=== PATIENT | male | born 1940 ===

== ENCOUNTER 2016-08-30 05:42 | Day surgery (SDC) | payer MEDICARE, OTHER ==
--- NOTE | 2016-08-29 17:05 | Pre-Procedure Note/Attestation ---
Pre-Procedure Note/Attestation Complete Prior to Procedure Planned Procedure: left Procedure Narrative: 1- cataract extraction with phaco and PC IOL implantation, left eye. 2- insertion of Malyugin ring, left eye. Indications for Procedure Pre-Operative Diagnosis: 1- cataract left eye 2- floppy iris syndrome, left eye. Attestation I attest that I discussed the nature of the procedure; its benefits; risks and complications; and alternatives (and the risks and benefits of such alternatives ), prior to the procedure, with the patient (or the patient's legal manufacturer's representative). I attest that, if there was a reasonable possibility of needing a blood transfusion, the patient (or the patient's legal manufacturer's representative) was given the [place] [facility] standardized written summary, pursuant to the Blake Erika Blood Safety Act ([place] Health and Safety Code # 1645, as amended). I attest that I re-evaluated the patient just prior to the surgery and that there has been no change in the patient's H&P, except as documented below: MONSERRAT BLACKMON Aug 29, 2016 17:05
[~2016-08-30] VITALS: Ht 175.3 cm; Wt 79.4 kg
[2016-08-30] VITALS (8 sets, daily range): BP systolic 118–136; BP diastolic 69–80
[~2016-08-30 05:42] MED LIST: Akten 3.5% 1ml Btl ONE; Diclofenac Sod 0.1% Op Soln ONE; Gatifloxacin Opth Solution 0.5% ONE; Phenylephrine 10% Opth Soln 5ml ONE; Tropicamide 1% Opth Soln ONE
[2016-08-30] MEDS ORDERED: acetaZOLAMIDE 125mg tab ORAL ONE (06:00)
[2016-08-30] MEDS: Phenylephrine 10% Opth Soln 5ml LEFT EYE SCH ×3 (06:13→06:32)
[2016-08-30] MEDS: Diclofenac Sod 0.1% Op Soln LEFT EYE SCH ×3 (06:13→06:32)
[2016-08-30] MEDS: Akten 3.5% 1ml Btl LEFT EYE SCH ×3 (06:13→06:32)
[2016-08-30] MEDS: Tropicamide 1% Opth Soln LEFT EYE SCH ×3 (06:13→06:32)
[2016-08-30] MEDS: Gatifloxacin Opth Solution 0.5% LEFT EYE SCH ×3 (06:14→06:32)
[2016-08-30] MEDS ORDERED: BENICAR20 MG ORAL (06:43)
[2016-08-30] MEDS ORDERED: ASPIR 8181 MG ORAL (06:43)
[2016-08-30] MEDS ORDERED: SIMVASTATIN20 MG ORAL (06:43)
[2016-08-30] MEDS ORDERED: Dexamethasone 4mg/ml vial ONE (06:50)
[2016-08-30] MEDS ORDERED: Ciprofloxacin Opth Soln ONE (06:50)
[2016-08-30] MEDS ORDERED: Lidocaine 1% MPF 10mg/ml 5ml ONE ×2 (06:50→07:00)
[2016-08-30] MEDS ORDERED: BSS 500ml btl ONE (06:50)
[2016-08-30] MEDS ORDERED: Tetracaine 0.5% Opth Soln ONE (06:50)
[2016-08-30] MEDS ORDERED: Carbachol 0.01% Op Soln 1.5ml vial ONE (06:51)
[2016-08-30] MEDS ORDERED: EPINEPHrine 1mg/1ml Amp ONE (06:51)
[2016-08-30] MEDS ORDERED: BSS 15ml BTL ONE (06:51)
[2016-08-30] MEDS ORDERED: Sodium Hyaluronate 10 mg/ml 0.85ml ONE ×2 (06:51→07:50)
[2016-08-30] MEDS ORDERED: Povidone-Iodine 5% opth solution ONE (06:52)
[2016-08-30] MEDS ORDERED: Vigamox Opth Soln LEFT EYE ONE (07:00)
[2016-08-30] MEDS ORDERED: Diclofenac Sod 0.1% Op Soln LEFT EYE SCH (07:00)
[2016-08-30] MEDS ORDERED: Akten 3.5% 1ml Btl LEFT EYE SCH (07:00)
[2016-08-30] MEDS ORDERED: NS Irrig 1000ml ONE (07:00)
[2016-08-30] MEDS ORDERED: Tropicamide 1% Opth Soln LEFT EYE SCH (07:00)
[2016-08-30] MEDS ORDERED: Phenylephrine 10% Opth Soln 5ml LEFT EYE SCH (07:00)
[2016-08-30] MEDS ORDERED: Sterile Water Irrig 1000ml IRRIG ONE (07:00)
[2016-08-30] MEDS ORDERED: Vigamox Opth Soln LEFT EYE SCH (07:00)
[2016-08-30] MEDS ORDERED: fentaNYL 100 mcg/2 mL IV ONE (07:00)
[2016-08-30] MEDS ORDERED: LR 1000ml ONE (07:00)
[2016-08-30] MEDS ORDERED: Phenylephrine 10% Opth Soln 5ml LEFT EYE ONE (07:00)
[2016-08-30] MEDS ORDERED: DiphenhydrAMINE 50mg/ml Inj ONE (07:17)
--- NOTE | 2016-08-30 07:40 | Anethesia Preoperative Eval ---
Anesthesia Pre-op PMH/ROS General Date of Evaluation: Aug 30, 2016 Anesthesiologist: Tunde ASA Score: ASA 3 Mallampati Score Class I : Soft palate, uvula, fauces, pillars visible Class II: Soft palate, uvula, fauces visible Class III: Soft palate, base of uvula visible Class IV: Only hard plate visible Mallampati Classification: Class III Surgeon: Riley Diagnosis: Left cataract Surgical Procedure: Left cataract extraction with IOL Anesthesia History: none Family History: no anesthesia problems Allergies: Coded Allergies: No Known Allergies (Unverified , 08/29/16) Medications: see eMAR Past Medical History Cardiovascular: Reports: HTN, other - HLD, Denies: CAD, ID, arrhythmia, valve dz Pulmonary: Denies: COPD, JENNIFER, asthma, other Gastrointestinal/Genitourinary: Reports: other - prostate cancer, Denies: CRI, ESRD, GERD Neurologic/Psychiatric: Denies: CVA, TIA, dementia, depression/anxiety, other Endocrine: Denies: DM, hypothyroidism, other, steroids HEENT: Denies: LA JOLLA (L), LA JOLLA (R), cataract (L), cataract (R), glaucoma, other Hematology/Immune: Denies: DVT, anemia, bleeding disorder, other Musculoskeletal/Integumentary: Reports: OA, Denies: DDD, DJD, RA, edema, other PSxH Narrative: neck sx, prostatectoy, lumbar sx Anesthesia Pre-op Phys. Exam Physician Exam Last Vital Signs Date Time Temp Pulse Resp B/P Pulse Ox O2 Delivery O2 Flow Rate FiO2 08/30/16 06:19 97.2 51 18 126/72 97 Room Air Constitutional: NAD Cardiovascular: RRR Respiratory: CTA Airway Exam Mallampati Score: Class II MO: full ROM: limited Teeth: missing Dentures: lower, upper Anesthesia Pre-op A/P Labs see chart Studies Pre-op Studies: EKG - sb Risk Assessment & Plan Assessment: ASA III Plan: MAC Status Change Before Surgery: No Pre-Antibiotics Drug: N/A ROSA ISELA GOYAL M.D. Aug 30, 2016 07:40
[2016-08-30] MEDS ORDERED: LR 1000ml 1,000 ML IVLG SCH (07:41)
--- NOTE | 2016-08-30 07:41 | 48 Hour Post Anesthesia Eval ---
Post Anesthesia Evaluation Procedure: Left cataract extraction with IOL Date of Evaluation: Aug 30, 2016 Blood Pressure Systolic: 141 0: 74 Pulse Rate: 56 Respiratory Rate: 17 O2 Sat by Pulse Oximetry: 100 Airway: patent Nausea: No Vomiting: No Pain Intensity: 0 Hydration Status: adequate Cardiopulmonary Status: at baseline Mental Status/LOC: patient returned to baseline Post-Anesthesia Complications: 0 Follow-up care needed: ready to discharge ROSA ISELA GOYAL M.D. Aug 30, 2016 07:41
--- NOTE | 2016-08-30 07:41 | Immediate Post-Op Evaluation ---
Immediate Post-Op Evalulation Immediate Post-Op Evalulation Procedure: Left cataract extraction with IOL Date of Evaluation: Aug 30, 2016 Time of Evaluation: 08:19 IV Fluids: 300 Blood Products: 0 Estimated Blood Loss: 0 Urinary Output: 0 Blood Pressure Systolic: 136 Blood Pressure Diastolic: 72 Pulse Rate: 52 Respiratory Rate: 16 O2 Sat by Pulse Oximetry: 100 Temperature (Fahrenheit): 97.2 Pain Score (1-10): 0 Nausea: No Vomiting: No Complications 0 Patient Status: awake, reacts, patent, none Hydration Status: adequate Drug: N/A ROSA ISELA GOYAL M.D. Aug 30, 2016 07:41
[2016-08-30] MEDS ORDERED: DiphenhydrAMINE 50mg/ml Inj IVP PRN (07:45)
--- NOTE | 2016-08-30 08:17 | Discharge Summary ---
Discharge Summary Discharge Summary Discharge Summary DATE OF ADMISSION:08/30/2016 DATE OF DISCHARGE:08/30/2016 REASON FOR HOSPITALIZATION: cataract left eye SURGERY PERFORMED: Cataract extraction with phaco and PC IOl implantation, left eye CONDITION IN THE HOSPITAL:The patient tolerated the surgery without complications. DISCHARGE CONDITION: The patient was stable at discharge. DISCHARGE MEDICATIONS: 1. Vigamox eye drops one drop q.i.d, left eye 2. Prednisolone one drop q.i.d, left eye 3. Acular one drp q4h, left eye POSTOPERATIVE ORDERS: The patient has to rest at home. No bending, No lifting, No watching Television tonight. POSTOPERATIVE FOLLOW UP: The patient will be followed in my office tomorrow morning at 7 o'clock. MONSERRAT BLACKMON Aug 30, 2016 08:17
--- NOTE | 2016-08-30 08:21 | Brief Operative Note ---
Immediate Post Operative Note Operative Note Chief Complaint: Blurry left eye difficulty reading and driving, left eye Pre-op Diagnosis: 1- cataract left eye 2- floppy iris syndrome, left eye. Procedure: 1- Cataract extraction with phaco and PC IOl implantation, left eye 2- Limbal relaxing incision, ( LRI ), left eye Post-op Diagnosis: same as pre-op Surgeon: Monserrat Lin MD. Educational Technology Specialist: None Additional Surgeons: None Anesthesiologist: Dr. Griffiths Anesthesia: MAC Specimen: none Complications: none Condition: stable Estimated Blood Loss: none Drains: none Implant(s) used?: Yes - Monofocal IOl implanted in the left ye without complication, left eye MONSERRAT LIN Aug 30, 2016 08:21
--- NOTE | 2016-08-31 02:31 | Operative Note - Dictated ---
DATE OF OPERATION: 08/30/2016 FACILITY: [facility]. SURGEON: Bean Lin M.D. PAPER PROCESSING MACHINE HELPER: None. ANESTHESIOLOGIST: Dr. Griffiths. ANESTHESIA: Monitored anesthesia care (MAC). PREOPERATIVE DIAGNOSES: 1. Cataract, left eye. 2. Astigmatism, left eye. POSTOPERATIVE DIAGNOSES: 1. Cataract, left eye. 2. Astigmatism, left eye. SURGERY PERFORMED: 1. Cataract extraction with phacoemulsification and posterior chamber intraocular lens implantation in the left eye. 2. Limbal relaxing incision (LRI), left eye. INDICATION FOR SURGERY: The patient is a 76-year-old gentleman with history of hypertension, prostate cancer and hypercholesterolemia. He is taking aspirin 81 mg, simvastatin, Benicar and antihypertensive medication. He is not allergic to any medications. He is complaining of blurry vision in the left eye. On examination of the left eye, the cornea is clear. Anterior chamber is clean and quiet. Pupillary reflex is normal. There is no RAPD. There is 4+ nuclear sclerosis and 2+ cortical cataract. Funduscopy shows normal optic disc, normal macula, and periphery retina is flat. To improve his vision in the left eye, the cataract has to be removed and posterior chamber intraocular lens has to be implanted. INFORMED CONSENT: The nature of the surgery, risks, benefits, alternatives, and potential complications were explained in detail to the patient. The potential complications including, but not limited to bleeding, infection, posterior capsular rupture, lens subluxation, flat anterior chamber, iris prolapse, uveitis, corneal edema, macular edema, endophthalmitis, retinal detachment, loss of vision, and loss of the eye were all explained in detail to the patient in his language, Farsi. The patient voiced understanding and accepted all the complications. The alternatives including accommodating lens, multifocal lens, toric lens, and conventional cataract surgery with limbal relaxing incision (LRI) for treatment of astigmatism were all explained in detail to the patient. He voiced understanding. The patient elected to have cataract surgery with limbal relaxing incision for astigmatism. Then, he signed a consent form, which is in the chart. DESCRIPTION OF SURGERY AND FINDINGS: Following that, the patient was taken to the operating room in a stable condition. A lidocaine gel Akten 3.5% was applied to the conjunctiva of the left eye. IV sedation was given by the anesthesiologist, Dr. Griffiths. After adequate anesthesia and sedation had been achieved, the left eye was prepped and draped in a sterile fashion for intraocular surgery. Following that, a speculum was placed in the left eye. Before the patient was taken to the operating room, the cornea was marked at 180 and 90 meridian. In the operating room, using a corneal marker and marking pen, the steep meridian of the cornea was marked. Following that, using a vickie knife with a blade, two parallel incisions were made in the steep meridian of the cornea to treat the patient's astigmatism. Following that, using a Super Sharp knife, a clear corneal side port was created. Following that, 1% lidocaine without preservatives (MPF) was injected into the anterior chamber. The viscoelastic agent Healon was injected into the anterior chamber. Following that, a clear corneal temporal corticectomy was performed with a 2.8 mm keratome. Following that, viscoelastic agent Healon was injected into the anterior chamber again. Following that, Vision Blue was injected under the viscoelastic agent to extend the anterior capsule. Following that, a clear fresh viscoelastic agent Healon was injected into the anterior chamber again. Under the viscoelastic agent, an anterior capsulotomy was performed in the fashion of capsulorrhexis beautifully. Following that, viscoelastic agent was removed from the anterior chamber. Following that, using balanced salt solution, hydrodissection and hydrodelineation was performed and the nucleus was freed. Following that, the viscoelastic agent was injected into the anterior chamber again to protect the endothelium of the cornea. Following that, using phacoemulsification machine in the fashion of horizontal chop, the nucleus was removed in toto. Following that, the cortical material was removed from the capsular bag and the capsular bag was polished. Following that, capsular bag was filled with viscoelastic agent Healon. Following that, a +23 diopter [id number] foldable PCIOL with serial #[id number] was inserted into the capsular bag. Using a Sinskey hook, the lens was manipulated within the proper position. Following that, cortical material was removed from the anterior posterior part of the lens. Following that, the anterior chamber was filled with balanced salt solution and the wound was hydrated with balanced salt solution. Following that, the wound was checked for leakage. There was no leakage. Vigamox eyedrops were applied to the conjunctiva of the left eye. The patient tolerated the surgery without complications. At the end of the surgery, the eye was patched with a clear fenestrated shield. Following that, the patient was transferred to the recovery room. In the recovery room, 125 mg Diamox was given by mouth stat. Postoperative orders and directions were given to the patient. The patient will be discharged home upon stabilization. The patient will be followed in my office tomorrow morning at 7 o'clock. Bean Lin M.D. DR: JANE JOB#: [id number] CC:
== END 2016-08-30 09:35 | disposition home or self-care (01) ==
LOC: SUR 05:42
DX: H25.12 Age-related nuclear cataract, left eye (principal); H25.012 Cortical age-related cataract, left eye; H52.202 Unspecified astigmatism, left eye; H21.81 Floppy iris syndrome; I10 Essential (primary) hypertension; E78.5 Hyperlipidemia, unspecified; M19.90 Unspecified osteoarthritis, unspecified site; Z85.46 Personal history of malignant neoplasm of prostate
CPT/HCPCS: 66984; 66999; J0171; J1100; J1200; J3010; J7120; V2632; 94003; 94150

== ENCOUNTER 2016-09-13 06:21 | Day surgery (SDC) | payer MEDICARE, OTHER ==
--- NOTE | 2016-09-12 13:09 | Pre-Procedure Note/Attestation ---
Pre-Procedure Note/Attestation Complete Prior to Procedure Planned Procedure: right Procedure Narrative: 1. CATARACT EXTRACTION WITH PHACO AND PC IOL IMPLANTATION, RIGHT EYE. Indications for Procedure Pre-Operative Diagnosis: 1. CATARACT ,RIGHT EYE. Attestation I attest that I discussed the nature of the procedure; its benefits; risks and complications; and alternatives (and the risks and benefits of such alternatives ), prior to the procedure, with the patient (or the patient's legal outside dealer sales representative). I attest that, if there was a reasonable possibility of needing a blood transfusion, the patient (or the patient's legal outside dealer sales representative) was given the [facility] standardized written summary, pursuant to the Blake Bradshaw Blood Safety Act ([place] Health and Safety Code # 1645, as amended). I attest that I re-evaluated the patient just prior to the surgery and that there has been no change in the patient's H&P, except as documented below: MONSERRAT BLACKMON Sep 12, 2016 13:09
[2016-09-13] VITALS (9 sets, daily range): BP systolic 113–144; BP diastolic 62–77
[~2016-09-13] VITALS: Ht 175.3 cm; Wt 79.4 kg
[2016-09-13] MEDS: Tetracaine 0.5% Opth Soln RIGHT EYE SCH ×3 (06:00→06:10)
[~2016-09-13 06:21] MED LIST changes: +ASPIR 8181 MG ORAL; -Akten 3.5% 1ml Btl ONE; +BENICAR20 MG ORAL; -Diclofenac Sod 0.1% Op Soln ONE; -Gatifloxacin Opth Solution 0.5% ONE; -Phenylephrine 10% Opth Soln 5ml ONE; +SIMVASTATIN20 MG ORAL; -Tropicamide 1% Opth Soln ONE; +acetaZOLAMIDE 125mg tab ORAL ONE
[2016-09-13] MEDS ORDERED: Vigamox Opth Soln ONE (06:37)
[2016-09-13] MEDS ORDERED: Phenylephrine 10% Opth Soln 5ml ONE (06:37)
[2016-09-13] MEDS ORDERED: Tropicamide 1% Opth Soln ONE (06:38)
[2016-09-13] MEDS ORDERED: Diclofenac Sod 0.1% Op Soln ONE (06:38)
[2016-09-13] MEDS ORDERED: Tetracaine 0.5% Opth Soln ONE (06:38)
[2016-09-13] MEDS: Diclofenac Sod 0.1% Op Soln RIGHT EYE SCH ×3 (06:55→07:16)
[2016-09-13] MEDS: Phenylephrine 10% Opth Soln 5ml RIGHT EYE SCH ×3 (06:55→07:16)
[2016-09-13] MEDS: Vigamox Opth Soln RIGHT EYE SCH ×3 (06:55→07:16)
[2016-09-13] MEDS: Tropicamide 1% Opth Soln RIGHT EYE SCH ×3 (06:55→07:16)
[2016-09-13] MEDS ORDERED: EPINEPHrine 1mg/1ml Amp ONE (07:00)
[2016-09-13] MEDS ORDERED: Lidocaine 1% MPF 10mg/ml 5ml ONE (07:00)
[2016-09-13] MEDS ORDERED: Dexamethasone 4mg/ml vial ONE ×2 (07:00→09:35)
[2016-09-13] MEDS ORDERED: Povidone-Iodine 5% opth solution ONE (07:00)
[2016-09-13] MEDS ORDERED: BSS 500ml btl ONE ×2 (07:00→08:57)
[2016-09-13] MEDS ORDERED: Sodium Hyaluronate 10 mg/ml 0.85ml ONE ×2 (07:01→08:57)
[2016-09-13] MEDS ORDERED: BSS 15ml BTL ONE (07:01)
[2016-09-13] MEDS ORDERED: Propofol 10mg/ml 20ml IV ONE (08:00)
[2016-09-13] MEDS ORDERED: fentaNYL 100 mcg/2 mL IV ONE (08:00)
[2016-09-13] MEDS ORDERED: Midazolam 2mg/2ml Inj ONE (08:00)
[2016-09-13] MEDS ORDERED: Sterile Water Irrig 1000ml IRRIG ONE (08:00)
[2016-09-13] MEDS ORDERED: LR 1000ml ONE (08:00)
[2016-09-13] MEDS ORDERED: LR 1000ml 1,000 ML IVLG SCH (08:33)
--- NOTE | 2016-09-13 08:33 | Anethesia Preoperative Eval ---
Anesthesia Pre-op PMH/ROS General Date of Evaluation: Sep 13, 2016 Time of Evaluation: 08:12 Anesthesiologist: Paul Mallampati Score Class I : Soft palate, uvula, fauces, pillars visible Class II: Soft palate, uvula, fauces visible Class III: Soft palate, base of uvula visible Class IV: Only hard plate visible Mallampati Classification: Class III Surgeon: Riley Diagnosis: R eye cataract Surgical Procedure: R eye cataract extraction Anesthesia History: none Family History: no anesthesia problems Allergies: Coded Allergies: No Known Allergies (Unverified , 08/29/16) Medications: see eMAR Past Medical History Cardiovascular: Reports: HTN, Denies: CAD, SD, arrhythmia, other, valve dz Pulmonary: Denies: COPD, JENNIFER, asthma, other Gastrointestinal/Genitourinary: Reports: GERD, Denies: CRI, ESRD, other Neurologic/Psychiatric: Reports: other - chronic back pain, Denies: CVA, TIA, dementia, depression/anxiety Endocrine: Denies: DM, hypothyroidism, other, steroids HEENT: Reports: cataract (L), cataract (R), Denies: MINTO (L), MINTO (R), glaucoma, other Hematology/Immune: Denies: DVT, anemia, bleeding disorder, other Musculoskeletal/Integumentary: Reports: DJD, Denies: DDD, OA, RA, edema, other PMH Narrative: as above PSxH Narrative: Prostatectomy, Cervical and lumbar spine fusion, L eye cataract Anesthesia Pre-op Phys. Exam Physician Exam Last Vital Signs Date Time Temp Pulse Resp B/P Pulse Ox O2 Delivery O2 Flow Rate FiO2 09/13/16 06:57 97.5 50 20 113/65 97 Room Air Constitutional: NAD Neurologic: CN 2-12 intact Cardiovascular: RRR Respiratory: CTA Gastrointestinal: S/NT/ND Airway Exam Mallampati Score: Class II MO: limited Neck: stiff ROM: limited Teeth: missing Dentures: lower, upper Anesthesia Pre-op A/P Labs see chart Studies Pre-op Studies: EKG - SR Risk Assessment & Plan Assessment: ASA 2 Plan: MAC Status Change Before Surgery: No Pre-Antibiotics Drug: none ZAC CANNON M.D. Sep 13, 2016 08:33
[2016-09-13] MEDS ORDERED: fentaNYL 100 mcg/2 mL IV PRN (08:45)
[2016-09-13] MEDS ORDERED: DiphenhydrAMINE 50mg/ml Inj IVP PRN (08:45)
[2016-09-13] MEDS ORDERED: Triamcinolone 40mg/ml PF Vial ONE (08:46)
[2016-09-13] MEDS ORDERED: Carbachol 0.01% Op Soln 1.5ml vial ONE (09:45)
--- NOTE | 2016-09-13 10:10 | Discharge Summary ---
Discharge Summary Discharge Summary Discharge Summary DATE OF ADMISSION: 09/13/2016 DATE OF DISCHARGE: 09/13/2016 REASON FOR HOSPITALIZATION: SURGERY PERFORMED: 1- Cataract extraction with phaco and PV IOL implantation, right eye. 2- anterior vitrectomy, right eye. CONDITION IN THE HOSPITAL:The patient tolerated the surgery without complications. DISCHARGE CONDITION: The patient was stable at discharge. DISCHARGE MEDICATIONS: 1. Vigamox eye drops one drop q.i.d, right eye 2. Prednisolone one drop q.i.d, right eye 3. Acular eye drop, one drop qid, right eye POSTOPERATIVE ORDERS: The patient has to rest at home. No bending, No lifting, No watching Television tonight. POSTOPERATIVE FOLLOW UP: The patient will be followed in my office tomorrow morning at 7 o'clock. MONSERRAT BLACKMON Sep 13, 2016 10:10
--- NOTE | 2016-09-13 11:12 | Immediate Post-Op Evaluation ---
Immediate Post-Op Evalulation Immediate Post-Op Evalulation Procedure: R eye cataract extraction with IOL Date of Evaluation: Sep 13, 2016 Time of Evaluation: 09:40 IV Fluids: 600 Blood Products: none Estimated Blood Loss: none Urinary Output: none Blood Pressure Systolic: 132 Blood Pressure Diastolic: 64 Pulse Rate: 56 Respiratory Rate: 20 O2 Sat by Pulse Oximetry: 99 Temperature (Fahrenheit): 97.4 Pain Score (1-10): 2 Nausea: No Vomiting: No Complications none Patient Status: awake, patent, none Hydration Status: adequate ZAC CANNON M.D. Sep 13, 2016 11:12
--- NOTE | 2016-09-13 11:14 | 48 Hour Post Anesthesia Eval ---
Post Anesthesia Evaluation Procedure: R eye cataract extraction with IOL Date of Evaluation: Sep 13, 2016 Time of Evaluation: 11:13 Blood Pressure Systolic: 124 0: 62 Pulse Rate: 52 Respiratory Rate: 18 Temperature (Fahrenheit): 97.2 O2 Sat by Pulse Oximetry: 98 Airway: patent Nausea: No Vomiting: No Pain Intensity: 2 Hydration Status: adequate Cardiopulmonary Status: stable Mental Status/LOC: patient returned to baseline Follow-up Care/Observations: n/a Post-Anesthesia Complications: none Follow-up care needed: ready to discharge ZAC CANNON M.D. Sep 13, 2016 11:14
--- NOTE | 2016-09-13 20:15 | Operative Note - Dictated ---
DATE OF OPERATION: 09/13/2016 FACILITY: [facility]. SURGEON: Bean Lin M.D. SHIRT SORTER: None. ANESTHESIOLOGIST: Mainor Miller M.D. ANESTHESIA: Monitored anesthesia care (MAC). PREOPERATIVE DIAGNOSES: 1. Cataract, right eye. 2. Vitreous prolapse. POSTOPERATIVE DIAGNOSES: 1. Cataract, right eye. 2. Vitreous prolapses. SURGERY PERFORMED: 1. Cataract extraction with phacoemulsification and posterior chamber intraocular lens implantation in the right eye. 2. Anterior vitrectomy, right. INDICATION FOR SURGERY: The patient is a 76-year-old gentleman with history of hypertension, hypercholesterolemia, and prostate cancer. He is taking aspirin 81 mg, simvastatin, Benicar, and antihypertensive medication, losartan. He is not allergic to any medications. He is complaining of blurry vision in the right eye. He has had cataract surgery in the left eye last week and he is very happy with the result. On examination of the right eye, the cornea is clear. Anterior chamber is clean and quiet. Pupillary reflex is normal. There is no RAPD. There is 4+ nuclear sclerosis and 2+ cortical cataract. Funduscopy shows normal optic disc, normal macula, and periphery retina is flat. To improve his vision in the right eye, the cataract has to be removed and posterior chamber intraocular lens has to be implanted. INFORMED CONSENT: The nature of the surgery, risks, benefits, alternatives, and potential complications were explained in detail to the patient in his language, Farsi. The potential complications including, but not limited to bleeding, infection, posterior capsular rupture, lens subluxation, flat anterior chamber, iris prolapse, uveitis, corneal edema, macular edema, endophthalmitis, retinal detachment, loss of vision, and loss of the eye were all explained in detail to the patient in his language, Farsi. The patient voiced understanding and accepted all the complications. The alternatives including accommodating lens, multifocal lens, toric lens, and conventional cataract surgery with limbal relaxing incision (LRI) for treatment of astigmatism were all explained in detail to the patient. He voiced understanding. The patient elected to have only conventional cataract surgery in the right eye. Then, he signed a consent form, which is in the chart. DESCRIPTION OF SURGERY AND FINDINGS: Following that, the patient was taken to the operating room in a stable condition. A lidocaine gel Akten 3.5% was applied to the conjunctiva of the right eye. IV sedation was given by the anesthesiologist, Dr. Miller. After adequate anesthesia and sedation had been achieved, the right eye was prepped and draped in a sterile fashion for intraocular surgery. Following that, a speculum was placed in the right eye. Following that with a Super Sharp knife, a clear corneal side port was created. Following that, 1% lidocaine without preservative (MPF) was injected into the anterior chamber. The viscoelastic agent Healon was injected into the anterior chamber. Following that, a clear corneal temporal keratotomy was performed with a 2.8 mm keratome. Following that, viscoelastic agent Healon was injected into the anterior chamber again. Following that, Vision Blue was injected under the viscoelastic agent to stain the anterior capsule. Following that, a clear fresh viscoelastic agent Healon was injected into the anterior chamber again. Under the viscoelastic agent, Healon and anterior capsulotomy was performed in the fashion of capsulorrhexis beautifully. Following that, viscoelastic agent was removed from the anterior chamber. Following that, using balanced salt solution, hydrodissection and hydrodelineation was performed and the nucleus was freed. Following that, the viscoelastic agent was injected into the anterior chamber again to protect the endothelium of the cornea. Following that, using phacoemulsification machine in the fashion of horizontal chop, the nucleus was removed in toto. Following that, the cortical material was removed from the capsular bag and the capsular bag was polished. Following that, and vitreous prolapsed into the anterior chamber. anterior vitrectomy was done. Following that, the posterior chamber was filled with viscoelastic agent Healon. Following that, a +23.5 diopter [id number] with serial #[id number] was inserted into the posterior chamber and the optic Fischbach due to area optical capture was created. Following that, viscoelastic agent Healon was removed from the anterior posterior part of the lens. Following that, wound was hydrated with balanced salt solution and wound was checked for leakage. There was no leakage. Vigamox eyedrops were applied to the conjunctiva. Dexamethasone and gentamicin was injected sub-tenon as well. The eye was patched with eye pad and clear sterile fenestrated shield. Following that, the patient was transferred to the recovery room. In the recovery room, 125 mg Diamox was given by mouth stat. Postoperative orders and directions were given to the patient. The patient will be followed in my office tomorrow morning at 6:45 a.m. Bean Lin M.D. DR: KRISTOPHER JOB#: [id number] CC:
== END 2016-09-13 11:10 | disposition home or self-care (01) ==
LOC: SUR 06:21
DX: H25.11 Age-related nuclear cataract, right eye (principal); H25.011 Cortical age-related cataract, right eye; H43.01 Vitreous prolapse, right eye; I10 Essential (primary) hypertension; M17.0 Bilateral primary osteoarthritis of knee; K21.9 Gastro-esophageal reflux disease without esophagitis; E78.00 Pure hypercholesterolemia, unspecified; G89.29 Other chronic pain; M54.9 Dorsalgia, unspecified; Z85.46 Personal history of malignant neoplasm of prostate; Z90.79 Acquired absence of other genital organ(s); Z79.82 Long term (current) use of aspirin
CPT/HCPCS: 66984; J0171; J1100; J2250; J2704; J3010; J3300; J7120; V2632; 94003; 94150